=== PATIENT | male | born 1995 | race Two or more races ===

== ENCOUNTER 2022-01-01 11:18 | Emergency (ER) | payer OTHER ==
[~2022-01-01] VITALS: Ht 172.7 cm; Wt 109.1 kg
--- NOTE | 2022-01-01 11:35 | NUR ---
BIBS FOR C/O LEFT SIDED CHEST WALL PAIN/PRESSURE RATED 5/10 IN PS, NON-RADIATING. PT A/O X4, VERBALLY RESPONSIVE, AMBULATORY. TO ER BED 9.
--- NOTE | 2022-01-01 11:40 | NUR ---
TECH AT BEDSIDE FOR EKG
--- NOTE | 2022-01-01 11:45 | NUR ---
PHLEB AT BEDSIDE FOR BLOOD DRAW. UNABLE TO INSERT LINE PT IS HARD STICK.
[2022-01-01] MEDS ORDERED: ASPIRIN 325 MG TABLET ONE (11:48)
[2022-01-01] MEDS ORDERED: ASPIRIN 325 MG TABLET PO ONE (12:00)
--- NOTE | 2022-01-01 12:10 | NUR ---
MORTISING MACHINE OPERATOR AT BEDSIDE FOR X-RAY
[2022-01-01 12:15] LABS: BASOPHILS % (AUTO) 0.2 % (0.0-2.0); EOSINOPHILS % (AUTO) 2.2 % (0.0-6.0); HEMATOCRIT 46 % (39-51); HEMOGLOBIN 15.2 g/dL (13.5-17.5); LYMPHOCYTES # (AUTO) 2.5 K/uL (0.8-4.8); LYMPHOCYTES % (AUTO) 26.4 % (20.0-44.0); MEAN CORPUSCULAR HGB CONC 33 g/dl (31.0-36.0); MEAN CORPUSCULAR VOLUME 78 fL (80-96); MONOCYTES # (AUTO) 0.8 K/uL (0.1-1.30); NEUTROPHILS # (AUTO) 6.1 K/uL (1.8-8.9); NEUTROPHILS % (AUTO) 63.2 % (43.0-81.0); PLATELET COUNT (AUTO) 280 K/uL (150-450); RED BLOOD CELL COUNT(AUTO) 5.92 MIL/uL (4.5-6.0); WHITE BLOOD COUNT (AUTO) 9.6 K/uL (4.3-11.0)
[2022-01-01 12:24] LABS: CALCIUM, SERUM 9.3 mg/dL (8.5-10.1); CARBON DIOXIDE 31 mmol/L (21-32); CHLORIDE 103 mmol/L (98-107); CREATININE 0.8 mg/dL (0.6-1.3); GLUCOSE 102 mg/dL (74-106); POTASSIUM 4.2 mmol/L (3.5-5.1); SODIUM SERUM 138 mmol/L (136-145); UREA NITROGEN, BLOOD 14 mg/dL (7-18)
--- NOTE | 2022-01-01 13:31 | NUR ---
[phone] JOE RAYMUNDO (GIRLFRIEND).
--- NOTE | 2022-01-01 13:55 | NUR ---
INSTALLATION SUPERINTENDENT AT BEDSIDE FOR BLOOD DRAW
[2022-01-01 15:02] VITALS: BP 142/95
--- NOTE | 2022-01-01 15:02 | NUR ---
Patient discharged to home in stable condition. No IV line noted. Written and verbal after care instructions given. Patient verbalizes understanding of instruction.
== END 2022-01-01 15:03 | disposition home or self-care (01) ==
LOC: ER 11:26
DX: R07.89 Other chest pain (principal); I10 Essential (primary) hypertension
CPT/HCPCS: 36415; 71045-TC; 80048-TC; 84484-TC; 85025-TC